=== PATIENT | male | born 1995 | race Caucasian/White ===

== ENCOUNTER 2024-10-29 15:18 | Emergency (ER) | payer OTHER ==
[2024-10-29 15:31] VITALS: TEMP 98.7
[2024-10-29 15:34] LABS: Absolute Neutrophil Ct (ANC) 5.09 x10^3/uL (1.78-5.38); BASOPHIL % 0.6 % (0.2-1.2); Basophil (Absolute #) 0.05 x10^3/uL (0.01-0.08); Eosinophil % 0.9 % (0.8-7.0); Eosinophil (Absolute #) 0.08 x10^3/uL (0.04-0.54); Hematocrit 39.8 % (40.1-51.0); Hemoglobin 14.2 g/dL (13.7-17.5); IMMATURE GRAN # 0.03 x10^3u/L (0.001-0.031); IMMATURE GRAN % 0.3 % (0.001-0.429); Lymphocyte (Absolute #) 3.13 x10^3/uL (1.32-3.57); Lymphocytes % 34.6 % (21.8-53.1); Mean Cell Volume 85.2 fL (79.0-92.2); Mean Corpuscular Hemoglobin 30.4 pg (25.7-32.2); Mean Corpuscular Hgb Concent. 35.7 g/dL (32.3-36.5); Mean Platelet Volume 9.5 fL (9.4-12.4); Monocyte (Absolute #) 0.66 x10^3/uL (0.30-0.82); Monocytes % 7.3 % (5.3-12.2); Neutrophil % 56.3 % (34.0-67.9); Platelet Count 321 x10^3/uL (163-337); Red Blood Count 4.67 x10^6/uL (4.63-6.08); Red Cell Distribution Width 12.2 % (11.6-14.4)
[2024-10-29 15:37] LABS: VBG BASE EXCESS -3.2 (-2.0-2.0); VBG CARBOXYHEMOGLOBIN 2.2 % T HGB (0.0-6.9); VBG HCO3- 16.1 meq/L (22-28); VBG HEMOGLOBIN 14.9; VBG O2 SATURATION 96.7 (95-100); VBG POTASSIUM 3.5 (3.5-5.1)
[2024-10-29 15:38] LABS: VBG pH 7.56 (7.32-7.42)
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
[2024-10-29] MEDS: solu-MEDROL 125 MG, Sterile H2O 10 ml 2 ML IV ONE (15:41)
[2024-10-29] MEDS ORDERED: solu-MEDROL ONE (15:41)
[2024-10-29] MEDS ORDERED: Sterile H2O 10 ml IJ ONE (15:41)
[2024-10-29] MEDS: PULMICORT 0.5 MG/2 ML RESPULES IH ONE (15:44)
[2024-10-29] MEDS: Sodium Chloride 0.9% 1000 ML 1,000 ML IV STA (15:48)
[2024-10-29 15:54] LABS: ALBUMIN 4.6 g/dL (3.5-5.0); ALKALINE PHOSPHATASE 98 U/L (38-126); ANION GAP 21.9 MEQ/L (5-15); BLOOD UREA NITROGEN 13 mg/dL (9-20); CHLORIDE 109 mmol/L (98-107); Calcium 9.3 mg/dL (8.4-10.2); Creatinine 1 0.89 mg/dL (0.66-1.25); EST GLOMERULAR FILTRATION RATE 119.7 ML/MIN; Glucose 100 mg/dL (74-106); NT PRO BNPII < 20.0 pg/mL (<300); Potassium 3.4 mmol/L (3.5-5.1); SGOT/AST 49 U/L (17-59); SGPT/ALT 61 U/L (0-50); SODIUM 142 mmol/L (135-145); Total Protein 7.4 g/dL (6.3-8.2)
[2024-10-29 15:55] LABS: Carbon Dioxide 14 mmol/L (22-30)
[2024-10-29 16:07] VITALS: PULSE 100
[2024-10-29 16:31] VITALS: O2SAT 116
[2024-10-29 16:37] VITALS: BP 142/87; RESP 16
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
== END 2024-10-29 16:41 | disposition home or self-care (01) ==
LOC: ED 15:18
DX: T59.811A Toxic effect of smoke, accidental (unintentional), initial encounter (principal); R06.02 Shortness of breath; Y92.149 Unspecified place in prison as the place of occurrence of the external cause; Z79.899 Other long term (current) drug therapy
CPT/HCPCS: 36415; 71046; 80053; 82805; 83735; 83880; 85025; 85379; 93005; 94640; 96374; 99284; 99285; J2919

== ENCOUNTER 2025-05-17 01:51 | Emergency (ER) | payer OTHER ==
[2025-05-17 01:57] VITALS: TEMP 97.4
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
[2025-05-17 02:43] VITALS: O2SAT 97
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
[2025-05-17 03:04] VITALS: BP 130/91; PULSE 82; RESP 17
[2025-05-17] MEDS: TYLENOL 325 MG PO ONE (03:07)
[2025-05-17] MEDS ORDERED: TYLENOL 325 MG ONE (03:07)
== END 2025-05-17 03:25 | disposition home or self-care (01) ==
LOC: ED 01:51
DX: S00.03XA Contusion of scalp, initial encounter (principal); S00.01XA Abrasion of scalp, initial encounter; Y04.2XXA Assault by strike against or bumped into by another person, initial encounter; Y92.148 Other place in prison as the place of occurrence of the external cause; Y99.0 Civilian activity done for income or pay; J32.0 Chronic maxillary sinusitis; Z79.899 Other long term (current) drug therapy